=== PATIENT | male | born 2000 ===

== ENCOUNTER 2022-08-11 18:34 | Emergency (ER) | payer OTHER, SELFPAY ==
[2022-08-11] VITALS (7 sets, daily range): BP systolic 112–141; BP diastolic 68–83; PULSE 68–82; RESP 13–17; TEMP 37.1; O2SAT 96–98; BMI 19.0
--- NOTE | 2022-08-11 18:46 | DI.RAD.S_ITS ---
PROCEDURE: XR CHEST 1V INDICATIONS: chest pain TECHNIQUE: One view of the chest was acquired. COMPARISON: None. FINDINGS: Surgical changes and devices: None. Lungs and pleura: Lungs are clear. No pleural effusions or pneumothorax. Mediastinum: Mediastinal contours appear normal. Heart size is normal. Bones and chest wall: No suspicious bony lesions. Overlying soft tissues appear unremarkable. IMPRESSION: No acute cardiopulmonary disease. Dictated by: Madison Altman M.D. on 08/11/2022 at 18:50 Approved by: Madison Altman M.D. on 08/11/2022 at 18:50
[2022-08-11 19:09] LABS: Add Manual Diff / Slide Review NO; Basophils Absolute Auto 100 /uL (0-100); Eosinophils Absolute Auto 100 /uL (0-450); Eosinophils Percent Auto 1.2 % (2-4); Hematocrit 45.8 % (41-53); Hemoglobin 16.2 g/dL (13.5-17.5); Lymphocytes Absolute Auto 2100 /uL (1100-4500); Lymphocytes Percent Auto 25.6 % (25-40); Mean Corpuscular HGB Conc 35.3 % (30-36); Mean Corpuscular Hemoglobin 30.7 PG (26-34); Mean Corpuscular Volume 87.1 fL (80-100); Monocytes Absolute Auto 400 /uL (0-900); Monocytes Percent Auto 5.3 % (3-14); Neutrophils Absolute Auto 5500 /uL (1500-7000); Neutrophils Percent Auto 66.9 % (50-75); Platelet Count 212 X10^3/uL (150-400); Red Blood Cell Count 5.26 X10^6/uL (4.5-5.9); Red Cell Distribution Width 12.5 % (11.6-14.8); White Blood Cell Count 8.2 X10^3/uL (4.5-11.0)
[2022-08-11 19:16] LABS: INR 1.2 (0.9-1.3); Prothrombin Time 13.3 SECONDS (10.1-12.7)
--- NOTE | 2022-08-11 19:17 | ED_ITS ---
HPI - Chest Pain General Chief Complaint: Chest Pain Stated Complaint: chest pain left shoulder pain Time Seen by Provider: 08/11/22 19:09 Source: patient Mode of arrival: Ambulatory Limitations: no limitations History of Present Illness HPI narrative: Patient is a healthy 22-year-old male who presents with sudden onset of left- sided chest pain while washing dishes today. He reports sharp stabbing nonradiating pinpoint. Nothing really makes it better or worse. So he probably got some Tylenol prior to arrival. He denies any shortness of breath nausea vomiting palpitations dizziness lightheadedness or abdominal pain. Related Data Allergies Allergy/AdvReac Type Severity Reaction Status Date / Time No Known Drug Allergies Allergy Verified 08/11/22 18:40 Review of Systems Review of Systems ROS Unobtainable: All systems reviewed & are unremarkable except as noted in HPI and below Patient History Family History Grandmother Malignant neoplasm of pancreas, unspecified location of malignancy Social History Smoking Status: Never smoker Smoking Status: Never smoker Substance Use Type: does not use Exam Initial Vital Signs Initial Vital Signs: Vital Signs Temperature 98.8 F 08/11/22 18:36 Pulse Rate 82 08/11/22 18:36 Respiratory Rate 16 08/11/22 18:36 Blood Pressure 141/83 H 08/11/22 18:36 Pulse Oximetry 97 08/11/22 18:36 Oxygen Delivery Method Room Air 08/11/22 18:36 GENERAL: thin tall 22-year-old male HEENT: Head atraumatic,EOMI, pupils reactive, face symmetric, moist mucous membranes CARDIOVASCULAR: Regular rate and rhythm without murmurs, rubs or gallops. Pinpoint reproducible with palpation between ribs 3 and 4 left anterior chest RESPIRATORY: Breath sounds equal bilaterally, no wheezes rales or rhonchi. ABDOMEN: Soft, nontender. Normoactive bowel sounds all 4 quadrants. No guar ding or rebound. EXTREMITIES: Normal range of motion, no clubbing or edema. Neurovascularly intact NEUROLOGICAL: Alert and oriented x4 SKIN: Warm, dry, no laceration, no petechiae, no rashes or lesions. Scores HEART Score Heart Score history: Slightly Suspicious Heart Score EKG: Normal Heart Score Age: < 45 years old Heart Score risk factors: No known risk factors Heart Score troponin: < or = to normal limit Heart Score Total: 0 PERC Score Age greater than or equal to 50 years: No Heart rate greater than or equal to 100 bpm: No Room Air O2 Sat less than 95%: No Unilateral leg swelling: No Recent trauma or surgery: No Hemoptysis: No Prior PE or DVT: No Hormone Use: No Total PERC Score: 0 Course Orders Ordered: ED Orders 08/11/22 18:46 XR chest 1V Stat EKG-12 Lead Stat 08/11/22 18:55 Complete Blood Count AUTO DIFF Stat Comprehensive Metabolic Panel Stat Lipase Stat Magnesium Stat PTT Partial Thromboplastin Frederic Stat Prothrombin Time INR Stat Troponin & CK Cardiac Panel Stat Discontinued Medications Aspirin (Aspirin 81 Mg Chew Tab) 324 mg PO NOW ONE Stop: 08/11/22 18:47 Last Admin: 08/11/22 19:34 Dose: 324 mg Documented By: ELKE Ketorolac Tromethamine (Ketorolac 30 Mg/Ml Vial) 15 mg IV NOW ONE Stop: 08/11/22 19:29 Last Admin: 08/11/22 19:34 Dose: 15 mg Documented By: ELKE Vital Signs Vital signs: Vital Signs - 8 hr 08/11/22 19:00 08/11/22 19:00 08/11/22 19:30 Pulse Rate 78 Respiratory Rate 17 Blood Pressure 116/68 121/75 Pulse Oximetry 96 Oxygen Delivery Method 08/11/22 19:30 08/11/22 20:00 08/11/22 20:00 Pulse Rate 71 77 Respiratory Rate 15 13 Blood Pressure 118/72 Pulse Oximetry 97 97 Oxygen Delivery Method 08/11/22 20:30 08/11/22 20:30 Pulse Rate 73 Respiratory Rate 15 Blood Pressure 112/76 Pulse Oximetry 98 Oxygen Delivery Method Room Air MDM - Chest Pain Lab Data 08/11/22 18:55 08/11/22 18:55 Labs: Lab Results 08/11/22 08/11/22 08/11/22 Range/Units 18:55 18:55 18:55 WBC 8.2 (4.5-11.0) X10^3/uL RBC 5.26 (4.5-5.9) X10^6/uL Hgb 16.2 (13.5-17.5) g/dL Hct 45.8 (41-53) % MCV 87.1 (80-100) fL MCH 30.7 (26-34) PG MCHC 35.3 (30-36) % RDW 12.5 (11.6-14.8) % Plt Count 212 (150-400) X10^3/uL Neut % (Auto) 66.9 (50-75) % Lymph % (Auto) 25.6 (25-40) % Dickey % (Auto) 5.3 (3-14) % Eos % (Auto) 1.2 L (2-4) % Baso % (Auto) 1.0 (0-2) % Neut # (Auto) 5500 (8466-4397) /uL Lymph # (Auto) 2100 (9208-6943) /uL Dickey # (Auto) 400 (0-900) /uL Eos # (Auto) 100 (0-450) /uL Baso # (Auto) 100 (0-100) /uL PT 13.3 H (10.1-12.7) SECONDS INR 1.2 (0.9-1.3) APTT 30 (26-36) SECONDS Sodium 139 (137-145) mmol/L Potassium 4.1 (3.4-5.1) mmol/L Chloride 104 (98-107) mmol/L Carbon Dioxide 26 (22-32) mmol/L BUN 12 (9-20) mg/dL Creatinine 0.76 (0.66-1.25) mg/dL Estimated GFR > 60 (>60) mL/min BUN/Creatinine Ratio 15.8 (6-22) Glucose 116 H (70-100) mg/dL Calcium 8.9 (8.4-10.2) mg/dL Magnesium 2.2 (1.6-2.3) mg/dL Total Bilirubin 0.9 (0.2-1.3) mg/dL AST 33 (17-59) IU/L ALT 32 (<50) IU/L Alkaline Phosphatase 95 (38-126) U/L Total Creatine Kinase 143 (55-170) U/L CK-MB (CK-2) TNP CK-MB (CK-2) Rel Index TNP Troponin I < 0.012 (0.01-0.034) ng/mL Total Protein 8.1 (6.3-8.2) g/dL Albumin 4.9 (3.5-5.0) g/dL Globulin 3.2 (1.7-4.1) g/dL Albumin/Globulin Ratio 1.5 (1.0-2.8) Lipase 85 (23-300) U/L Imaging Data Chest x-ray: Radiologist's Impression: PROCEDURE:? XR CHEST 1V ? INDICATIONS:? chest pain ? TECHNIQUE:? One view of the chest was acquired.? ? COMPARISON:? None. ? FINDINGS:? ? Surgical changes and devices:? None.? ? Lungs and pleura:? Lungs are clear.? No pleural effusions or pneumothorax.? ? Mediastinum:? Mediastinal contours appear normal.? Heart size is normal.? ? Bones and chest wall:? No suspicious bony lesions.? Overlying soft tissues appear unremarkable.? ? IMPRESSION:? No acute cardiopulmonary disease.? ? ? Dictated by: Madison Altman M.D. on 08/11/2022 at 18:50 ? ? ECG Data Interpretation: Normal sinus rhythm rate 73 MT interval 126 QRS [address] changes T-wave inversion lead 3 MDM Narrative Medical decision making narrative: Patient is a healthy 22-year-old male who presents with reproducible chest pain left anterior chest. Blood work is overall reassuring negative troponin x-ray is negative EKG is normal. He got Tylenol prior to arrival and Toradol here in the ED. seems musculoskeletal due to reproducibility. Negative PERC score negative heart score unlikely to be coronary artery disease. It is not pos itional like pericarditis. Discharge Plan Departure Patient Disposition: Home Clinical Impression: Costalchondritis, Atypical chest pain Instructions: Costochondritis Activity Restrictions/Additional Instructions: *You have been diagnosed with costochondritis, atypical chest pain *What to do: At this time likely muscular musculoskeletal rib strain. Blood work EKG are reassuring. Try ice or heat as needed. *Continue to take medications as directed Tylenol/acetaminophen 1000 mg every 6 hours if needed for [id number] pain Motrin 600 mg every 6 hours if needed for [id number] pain *Follow up with your primary care provider in 2-3 days or call [phone] *Return to ER if you should have increasing pain palpitations dizziness lightheadedness passing out or any new, worsening or concerning symptoms Referrals: Page Blackman DO [Primary Care Provider] - Stand Alone Forms: Patient Portal/API
[2022-08-11 19:19] LABS: PTT Partial Thromboplastin Tim 30 SECONDS (26-36)
[2022-08-11 19:20] LABS: Alanine Aminotransferase 32 IU/L (<50); Albumin 4.9 g/dL (3.5-5.0); Albumin Globulin Ratio 1.5 (1.0-2.8); Alkaline Phosphatase 95 U/L (38-126); Aspartate Aminotransferase 33 IU/L (17-59); BUN Creatinine Ratio 15.8 (6-22); Bilirubin Total 0.9 mg/dL (0.2-1.3); Blood Urea Nitrogen 12 mg/dL (9-20); Calcium 8.9 mg/dL (8.4-10.2); Carbon Dioxide 26 mmol/L (22-32); Chloride 104 mmol/L (98-107); Creatine Kinase 143 U/L (55-170); Estimated Glomerular Filt Rate > 60 mL/min (>60); Globulin 3.2 g/dL (1.7-4.1); Glucose 116 mg/dL (70-100); Lipase 85 U/L (23-300); Magnesium 2.2 mg/dL (1.6-2.3); Sodium 139 mmol/L (137-145); Total Protein 8.1 g/dL (6.3-8.2)
[2022-08-11 19:31] LABS: HEMOLYSIS 54 (0-50); Troponin I < 0.012 ng/mL (0.01-0.034)
[2022-08-11 19:32] LABS: Potassium 4.1 mmol/L (3.4-5.1)
[2022-08-11] MEDS: KETOROLAC 30 MG/ML VIAL 15 MG IV (19:34)
[2022-08-11] MEDS: ASPIRIN 81 MG CHEW TAB 324 MG PO (19:34)
== END 2022-08-11 20:39 | disposition home or self-care (01) ==
PROVIDERS: Emergency Provider Emergency Medicine; PCP Family Medicine
DX: R07.89 Other chest pain (principal); M94.0 Chondrocostal junction syndrome [Tietze]
CPT/HCPCS: 36415; 71045; 80053; 82550; 83690; 83735; 84484; 85025; 85610; 85730; 93005; 93010; 96374; 99284; J1885